=== PATIENT | female | born 1960 | race Caucasian/White ===

== ENCOUNTER → 2024-03-11 09:40 | Outpatient (CLI) | payer BC, SELFPAY ==
[2024-03-11 20:15] LABS: Appearance Urine UA CLEAR; Bilirubin Urine UA NEGATIVE (NEGATIVE); Color Urine UA YELLOW; Glucose Urine UA NEGATIVE (Negative); Ketones Urine UA NEGATIVE (NEGATIVE); Leukocyte Esterase Urine UA NEGATIVE (NEGATIVE); Nitrite Urine UA NEGATIVE (Negative); Occult Blood Urine UA NEGATIVE (Negative); Protein Urine UA NEGATIVE (Negative); Specific Gravity Urine UA <=1.005 (1.000-1.035); Urobilinogen Urine UA 0.2 E.U./dL (0.2)
[2024-03-11 20:19] LABS: pH Urine UA 6.5 (4.5-8.0)
[2024-03-11 20:21] LABS: Hemoglobin A1C% w Est Avg Glu 5.7 % (4.0-6.0)
[2024-03-11 20:22] LABS: HEMOLYSIS < 15 (0-50); Iron 82 ug/dL (37-170)
[2024-03-11 20:23] LABS: Alanine Aminotransferase 25 IU/L (<35); Albumin 4.1 g/dL (3.5-5.0); Albumin Globulin Ratio 1.7 (1.0-2.8); Alkaline Phosphatase 78 U/L (38-126); Aspartate Aminotransferase 37 IU/L (14-36); BUN Creatinine Ratio 23.7 (6-22); Bacteria Urine None Seen; Bilirubin Total 0.7 mg/dL (0.2-1.3); Blood Urea Nitrogen 18 mg/dL (7-17); C-Reactive Protein Quant < 0.5 mg/dL (<1.0); Calcium 8.9 mg/dL (8.4-10.2); Carbon Dioxide 24 mmol/L (22-32); Chloride 105 mmol/L (98-107); Cholesterol 245 mg/dL (140-199); Estimated Glomerular Filt Rate > 60 mL/min (>60); Gamma Glutamyl Transpeptidase 11 U/L (12-43); Globulin 2.4 g/dL (1.7-4.1); Glucose 91 mg/dL (80-110); HEMOLYSIS < 15 (0-50); Magnesium 2.2 mg/dL (1.6-2.3); Potassium 4.4 mmol/L (3.4-5.1); RBC Urine None Seen (0-5/HPF); Sodium 136 mmol/L (137-145); Squamous Epithelial Cell Urine None Seen (0-5/HPF); Total Protein 6.5 g/dL (6.3-8.2); Triglycerides 48 mg/dL (35-150); Urine Volume 10mL (spun); WBC Urine None Seen (0-5/HPF)
[2024-03-11 20:28] LABS: Add Manual Diff / Slide Review NO; Basophils Absolute Auto 100 /uL (0-100); Basophils Percent Auto 3.2 % (0-2); Eosinophils Absolute Auto 200 /uL (0-450); Eosinophils Percent Auto 3.7 % (2-4); Hemoglobin 12.5 g/dL (12.0-16.0); Lymphocytes Absolute Auto 1700 /uL (1100-4500); Lymphocytes Percent Auto 38.6 % (25-40); Mean Corpuscular HGB Conc 33.7 % (30-36); Mean Corpuscular Hemoglobin 30.7 PG (26-34); Mean Corpuscular Volume 91.2 fL (80-100); Monocytes Absolute Auto 300 /uL (0-900); Monocytes Percent Auto 7.4 % (3-14); Neutrophils Absolute Auto 2000 /uL (1500-7000); Neutrophils Percent Auto 47.1 % (50-75); Platelet Count 173 X10^3/uL (150-400); Red Blood Cell Count 4.06 X10^6/uL (4.0-5.2); Red Cell Distribution Width 13.3 % (11.6-14.8); White Blood Cell Count 4.3 X10^3/uL (4.5-11.0)
[2024-03-11 20:37] LABS: Percent Iron Saturation 26 % (15-50); Total Iron Binding Capacity 310 ug/dL (265-497); Transferrin 251 mg/dL (206-381)
[2024-03-11 20:40] LABS: Follicle Stimulating Hormone 101 mIU/mL; Progesterone, Total 2.17 ng/mL; Vitamin D 25 Hydroxy (D3) 67.3 ng/mL (30.0-100.0)
[2024-03-11 20:41] LABS: HDL Cholesterol 132 mg/dL (40-60); LDL Cholesterol Calculated 103 mg/dL (<100)
[2024-03-11 20:43] LABS: Prolactin 11.6 ng/mL (3.0-18.6)
[2024-03-11 20:45] LABS: Free T3, Triiodothyronine Free 3.94 pg/mL (2.77-5.27); Free T4, Direct Thyroxine 0.96 ng/dL (0.78-2.19)
[2024-03-11 20:56] LABS: Cortisol Random 6.25 ug/dL; Estradiol, Total 36.4 pg/mL
[2024-03-11 20:59] LABS: Thyroid Stimulating Hormone 1.39 uIU/mL (0.47-4.68)
[2024-03-11 21:01] LABS: Ferritin 24 ng/mL (11-264)
== END ==
DX: R63.5 Abnormal weight gain (principal); N95.1 Menopausal and female climacteric states; R53.83 Other fatigue; R09.81 Nasal congestion
CPT/HCPCS: 80053; 80061; 81001; 82172; 82306; 82533; 82627; 82670; 82728; 82977; 83001; 83036; 83090; 83525; 83540; 83550; 83735; 84140; 84144; 84146; 84403; 84439; 84443; 84481; 85025; 86140; 87086

== ENCOUNTER → 2024-03-14 14:08 | Outpatient (CLI) | payer BC, SELFPAY ==
[2024-03-22 21:41] LABS: Pregnenolone 92 ng/dL (.)
== END ==
PROVIDERS: Visit Provider General Practice
DX: R63.5 Abnormal weight gain (principal); N95.1 Menopausal and female climacteric states; R53.83 Other fatigue; R09.81 Nasal congestion
CPT/HCPCS: 84140

== ENCOUNTER → 2025-06-02 11:11 | Outpatient (CLI) | payer BC, SELFPAY ==
[2025-06-02 18:40] LABS: Add Manual Diff / Slide Review NO; Hematocrit 38.5 % (36-46); Hemoglobin 13.0 g/dL (12.0-16.0); Lymphocytes Absolute Auto 1800 /uL (1100-4500); Mean Corpuscular HGB Conc 33.9 % (30-36); Mean Corpuscular Hemoglobin 30.4 PG (26-34); Mean Corpuscular Volume 89.6 fL (80-100); Platelet Count 168 X10^3/uL (150-400)
[2025-06-02 18:56] LABS: Alanine Aminotransferase 22 IU/L (<35); Albumin 4.1 g/dL (3.5-5.0); Albumin Globulin Ratio 1.6 (1.0-2.8); Alkaline Phosphatase 75 U/L (38-126); Blood Urea Nitrogen 14 mg/dL (7-17); Calcium 9.0 mg/dL (8.4-10.2); Carbon Dioxide 24 mmol/L (22-32); Chloride 102 mmol/L (98-107); Estimated Glomerular Filt Rate > 60 mL/min (>60); Globulin 2.6 g/dL (1.7-4.1); Glucose 85 mg/dL (70-99); HEMOLYSIS < 15 (0-50); Potassium 4.1 mmol/L (3.4-5.1); Sodium 132 mmol/L (137-145); Total Protein 6.7 g/dL (6.3-8.2); Uric Acid 3.5 mg/dL (2.5-6.2)
[2025-06-02 19:04] LABS: Hemoglobin A1C% w Est Avg Glu 5.7 % (4.0-6.0)
[2025-06-02 19:20] LABS: Vitamin D 25 Hydroxy (D3) 72.3 ng/mL (30.0-100.0)
[2025-06-02 19:21] LABS: Follicle Stimulating Hormone 109 mIU/mL; Progesterone, Total 2.90 ng/mL
[2025-06-02 19:29] LABS: Ferritin 37 ng/mL (11-264)
[2025-06-02 19:36] LABS: Estradiol, Total 38.4 pg/mL
[2025-06-02 19:49] LABS: Free T3, Triiodothyronine Free 3.89 pg/mL (2.77-5.27); Free T4, Direct Thyroxine 1.20 ng/dL (0.78-2.19); HEMOLYSIS < 15 (0-50); Thyroid Stimulating Hormone 1.13 uIU/mL (0.47-4.68)
[2025-06-02 20:29] LABS: Folate 13.5 ng/mL (2.76-20.0); Vitamin B12 858 pg/mL (239-931)
[2025-06-02 21:47] LABS: Iron 96 ug/dL (37-170)
[2025-06-02 22:04] LABS: Percent Iron Saturation 36 % (15-50); Total Iron Binding Capacity 268 ug/dL (265-497); Transferrin 235 mg/dL (206-381)
== END ==
PROVIDERS: Naturopath
DX: R63.5 Abnormal weight gain (principal); Z79.899 Other long term (current) drug therapy; N95.1 Menopausal and female climacteric states; N39.41 Urge incontinence; Z71.3 Dietary counseling and surveillance; Z13.0 Encounter for screening for diseases of the blood and blood-forming organs and certain disorders involving the immune mechanism; Z13.21 Encounter for screening for nutritional disorder; Z13.220 Encounter for screening for lipoid disorders; Z13.6 Encounter for screening for cardiovascular disorders; Z13.29 Encounter for screening for other suspected endocrine disorder; Z13.228 Encounter for screening for other metabolic disorders
CPT/HCPCS: 80053; 82306; 82525; 82533; 82542; 82607; 82627; 82642; 82670; 82728; 82746; 83001; 83002; 83036; 83090; 83525; 83540; 83550; 83735; 83970; 84140; 84144; 84146; 84270; 84305; 84402; 84403; 84439; 84443; 84481; 84482; 84550; 84630; 85025